=== PATIENT | male | born 1975 | race Caucasian/White ===

== ENCOUNTER 2017-05-02 12:21 | Emergency (ER) | payer OTHER ==
[2017-05-02] MEDS ORDERED: ASPIRIN 325 MG TABLET PO ONE (12:45)
[2017-05-02 12:54] LABS: BASO % 1 % (0-3); EOS # 0.2 x10^3/uL (0.0-0.7); EOS % 2 % (0-3); HEMATOCRIT 45.6 % (39.0-53.0); HEMOGLOBIN 15.9 g/dL (13.0-17.5); LYMPH # 3.4 x10^3/uL (1.0-4.8); LYMPH % 39 % (24-48); MEAN CORPUSCULAR HEMOGLOBIN 32 pg (25-35); MEAN CORPUSCULAR HGB CONC 35 g/dL (31-37); MEAN CORPUSCULAR VOLUME 92 fL (79-100); MONO # 0.4 x10^3/uL (0.0-1.1); MONO % 5 % (0-9); NEUT # 4.7 x10^3uL (1.8-7.7); NEUT % 53 % (31-73); PLATELET COUNT 210 x10^3/uL (140-400); RED BLOOD COUNT 4.98 x10^6/uL (4.30-5.70); RED CELL DISTRIBUTION WIDTH 12.6 % (11.5-14.5); WHITE BLOOD COUNT 8.8 x10^3/uL (4.0-11.0)
--- NOTE | 2017-05-02 12:59 | PHYS DOC ---
Past History Past Medical History: No Pertinent History Past Surgical History: No Surgical History Alcohol Use: None Drug Use: None Adult General Chief Complaint Chief Complaint: CHEST PAIN HPI HPI Patient is a 41-year-old [employer] male who presents ambulatory to the ED complaining "I think I had a heart attack on Thursday". Thursday,04/29, the patient was doing required physical training test. He walked 2-1/2 miles. He states he became much more out of breath than he should have. He had pain on the left side of his chest, into his left jaw and down his left arm. He's never gotten this short of breath before and he got very short of breath. The pain lasted several minutes or possibly some hour or 2. He has been having chest pain off and on since Thursday. Patient states he has had chest pain like this in the past. He's been seen in emergency departments 3 times in the past 4 years. He's had an echocardiogram, stress test, and CT scan but has never had a heart catheter. He's never been diagnosed with a heart attack or other heart condition. He's been seen in the ED at [place], in [place], and in [facility]. Patient is here for a one-year [facility], he just arrived, it starts next week. Cardiac risk factors: Negative hypertension He has been told his cholesterol was elevated but has never taken medicine for it He smoked for 20 years, quit 4 years ago His father had a CABG at age 58 Review of Systems Review of Systems Constitutional: Denies fever or chills [] Eyes: Denies change in visual acuity, redness, or eye pain [] HENT: Denies nasal congestion or sore throat [] Respiratory: As in history of present illness Cardiovascular: As in history of present illness GI: Denies abdominal pain, nausea, vomiting, bloody stools or diarrhea [] : Denies dysuria or hematuria [] Musculoskeletal: He has chronic knee pain which prevents him from doing much running Integument: Denies rash or skin lesions [] Neurologic: Denies headache, focal weakness or sensory changes [] Current Medications Current Medications Current Medications Medications (Trade) Dose Ordered Sig/Charissa Start Time Stop Time Status Last Admin Dose Admin Aspirin (Roberto Aspirin) 325 mg 1X ONCE 05/02/17 12:45 05/02/17 12:46 UNV 05/02/17 12:50 325 MG Allergies Allergies Allergies Coded Allergies Type Severity Reaction Last Updated Verified No Known Drug Allergies 05/02/17 No Physical Exam Physical Exam Constitutional: Well developed, well nourished, no acute distress, non-toxic appearance. Alert, mentating normally. HENT: Normocephalic, atraumatic, bilateral external ears normal, nose normal. [ ] Eyes: conjunctiva normal, no discharge. [] Neck: Normal range of motion, no stridor. [] Cardiovascular:Heart rate regular rhythm, no murmur [] Lungs & Thorax: Bilateral breath sounds clear to auscultation [] Skin: Warm, dry, no erythema, no rash. [] Extremities: No tenderness, no cyanosis, no clubbing, ROM intact, no edema. [] Neurologic: Alert and oriented X 3, normal motor function, normal sensory function, no focal deficits noted. [] Current Patient Data Vital Signs Vital Signs Date Time Temp Pulse Resp B/P (MAP) Pulse Ox O2 Delivery O2 Flow Rate FiO2 05/02/17 12:52 74 18 133/80 (97) 100 Room Air 05/02/17 12:25 98.4 EKG EKG 12-lead EKG read by me. Sinus rhythm. Heart rate 80. There are no acute ST or T wave changes indicative of ischemia or infarction. No STEMI. 1228 [] Radiology/Procedures Radiology/Procedures Two-view chest x-ray read by the radiologist. No acute findings. [] Course & Med Decision Making Course & Med Decision Making Pertinent Labs and Imaging studies reviewed. (See chart for details) 41-year-old male who is fit and in good health presents with chest pain 4 days ago while doing physical training. His description of the chest pain and shortness of air is concerning. He has multiple cardiac risk factors. He's been evaluated for chest pain in the past that has never had a heart catheter. I advised the patient we will get some tests in the ED as a starting point and he is agreeable to that. EKG, chest x-ray, cardiac enzymes, d-dimer are all normal today. Patient remained stable and pain-free while in the ED. I discussed the case with Dr. Lubin, private secretary at [facility]. He and I agreed that at this point the patient should undergo cardiac catheterization, non-emergently. He wants the patient to be transferred to [facility] for that procedure to be done. I spoke with Dr. Garcia , Hospitalist on-call [facility]. Transfer paperwork was done. The patient will be transferred by EMS to be admitted at [facility]. After I made the above arrangements to transfer the patient, which I had initially discussed with the patient as a likely outcome of his ED visit, I returned to discuss the plan with the patient. In discussing specifics of what he could expect in order to set appropriate expectations, I told the patient is likely that he would get a cardiac catheter but likely that would be Thursday, . This was per my discussion with Dr. Lubin, and the fact that the patient has been stable and pain-free in the emergency department. The patient stated that he does not want to be admitted to just "sit around" and that he wants to sign out and return to have his cardiac catheter electively. I explained in detail to the patient that part of his admission would be to have cardiac monitoring and also 2 more sets of serial enzymes. I explained to the patient that typically, when a patient is not having unstable symptoms, inpatient are not done on Sundays. I explained that if he were to sign out and follow-up with a private secretary in the office, he will most certainly not get a cardiac catheter done on Thursday. I explained the procedure for signing out AGAINST MEDICAL ADVICE and the fact that he could call the private secretary office on Thursday and will be given the first available appointment but it may be several days before he could even be seen in the office, and then several days to even weeks longer before he could have an electively arranged outpatient cardiac catheter. I strongly urge the patient to follow our previously agreed upon plan and be transferred to [facility] to have a full cardiology evaluation. The patient continued to state "this is ridiculous" and "I have other things to do" and very strongly disagreed with being admitted and stated that he will sign out and return if he has further problems. Therefore, the patient was signed out AGAINST MEDICAL ADVICE [] Dragon Disclaimer Dragon Disclaimer This chart was dictated in whole or in part using Voice Recognition software in a busy, high-work load, and often noisy Emergency Department environment. It may contain unintended and wholly unrecognized errors or omissions. Departure Departure: Impression: Primary Impression: Chest pain Disposition: AGAINST MEDICAL ADVICE Condition: STABLE Referrals: CAROLEE LUBIN MD Patient Instructions: Chest Pain (Nonspecific), [id number], Discharge Against Medical Advice Additional Instructions: As we discussed, I advise you to be admitted to the hospital for further testing. This would consist of 2 more sets of cardiac enzymes approximately every 6-8 hours. You would see a private secretary for consultation and a cardiac catheter. You have elected to leave the emergency department AGAINST MEDICAL ADVICE instead of being transferred to [facility] as I advise. I recommend that you take 1 full strength aspirin daily until you do see a private secretary and get his or her advice on that treatment. Call Thursday to make a cardiology appointment in the office. Left them know that you were in the ER with chest pain and they will give you an appointment as soon as possible. Left them know I talked to Dr. Lubin. TOMAS CARABALLO MD May 02, 2017 12:59
--- NOTE | 2017-05-02 13:08 | RAD ---
Indication chest pain for 3 days. PA and lateral views of the chest were obtained. No prior imaging of the chest is available. The heart and pulmonary vessels appear normal. The mediastinum has a normal appearance. The lungs are clear. No acute finding is apparent. The visualized bony structures appear grossly intact. IMPRESSION: No acute or focal process seen in the chest
[2017-05-02 13:23] LABS: ALBUMIN/GLOBULIN RATIO 1.2 (1.0-1.7); CALCIUM 8.7 mg/dL (8.5-10.1); CREATININE 1.3 mg/dL (0.7-1.3); GFR 61.1; MAGNESIUM 1.7 mg/dL (1.8-2.4); POTASSIUM 3.6 mmol/L (3.5-5.1); TOTAL BILIRUBIN 0.4 mg/dL (0.2-1.0); TOTAL PROTEIN 7.4 g/dL (6.4-8.2)
[2017-05-02 14:30] VITALS: BP 126/78
--- NOTE | 2017-05-02 18:23 | EKG ---
[address] [address] Test Date: 2017-05-02 Test Time: 12:28:11 Pat Name: NANNETTE VILLATORO Department: Room: Gender: M Medication Specialist: SAMANTHA : [id number] Requested By: TOMAS CARABALLO Order Number: [id number] Reading MD: Measurements Intervals [place] Rate: 80 P: 53 MS: 132 QRS: 65 QRSD: 92 T: 29 QT: 370 QTc: 430 Interpretive Statements SINUS RHYTHM QRS(T) CONTOUR ABNORMALITY CANNOT RULE OUT ANTEROLATERAL MYOCARDIAL DAMAGE RI6.01 Unconfirmed report No previous ECG available for comparison
== END 2017-05-02 14:55 | disposition left against medical advice (07) ==
LOC: ER 12:21
DX: R07.89 Other chest pain (principal)
CPT/HCPCS: 36415; 71020; 80053; 82553; 83735; 83880; 84484; 85027; 85379; 85610; 85730; 93005; 99285-25